=== PATIENT | female | born 2000 | race Two or more races ===

== ENCOUNTER 2022-10-26 18:39 | Inpatient (IN) | payer OTHER, SELFPAY ==
[2022-10-26] VITALS (13 sets, daily range): BP systolic 94–117; BP diastolic 54–69; PULSE 91–114; RESP 16; TEMP 36.3–36.8
[2022-10-26 20:05] LABS: Hematocrit 32.3 % (36.0-48.0); Hemoglobin 9.5 g/dL (12.0-16.0); Mean Corpuscular HGB Conc 29.4 g/dL (29.9-35.2); Mean Corpuscular Hemoglobin 20.4 pg (26.7-34.0); Mean Corpuscular Volume 69.3 fL (81.0-99.0); Mean Platelet Volume 11.3 fL (9.5-13.5); Platelet Count 246 10^3/uL (150-450); Red Blood Count 4.66 10^6/uL (4.20-5.40); Red Cell Distribution Width 18.3 % (11.0-15.0)
[2022-10-26 20:22] LABS: Amphetamine Screen Urine NEGATIVE (NEGATIVE); Barbiturates Screen Urine NEGATIVE (NEGATIVE); Benzodiazepines Screen Urine NEGATIVE (NEGATIVE); Buprenorphine Screen Urine NEGATIVE (NEGATIVE); Cannabinoid Screen Urine NEGATIVE (NEGATIVE); Cocaine Screen Urine NEGATIVE (NEGATIVE); Methadone Screen Urine NEGATIVE (NEGATIVE); Methamphetamines Screen Urine NEGATIVE (NEGATIVE); Opiate Screen Urine NEGATIVE (NEGATIVE); Oxycodone Screen Urine NEGATIVE (NEGATIVE); Phencyclidine Screen Urine NEGATIVE (NEGATIVE); Tricyclic Antidepressant Urine NEGATIVE (NEGATIVE)
[2022-10-26] MEDS: DINOPROSTONE 10 MG VAG INSERT.ER VAGINAL (20:30)
[2022-10-27] VITALS (36 sets, daily range): BP systolic 87–134; BP diastolic 49–81; PULSE 75–105; RESP 16–18; TEMP 36.2–36.9
[2022-10-27] MEDS: ACETAMINOPHEN 500 MG TABLET 1000 MG PO (05:49)
--- NOTE | 2022-10-27 07:10 | W.PC.ACHO ---
Registration Status: ADM IN Primary Language: Djiboutian Preferred Language: Djiboutian Report given at 0700. Active Medications Generic Name Dose Route Start Last Admin Trade Name Freq PRN Reason Stop Dose Admin Acetaminophen 1,000 mg 10/26/22 20:19 10/27/22 05:49 Acetaminophen 500 Mg Tablet PO 1,000 mg Q6H PRN Administration Cramping Calcium Carbonate 500 mg 10/26/22 20:19 Calcium Carbonate 500 Mg (200mg Elemental) Tab Chew PO TID PRN Acid Reflux Carboprost Tromethamine 250 mcg 10/26/22 19:02 Carboprost Tromethamine 250 Mcg/Ml 1 Ml Vial IM Q15M PRN Bleeding Famotidine 20 mg 10/26/22 20:19 Famotidine 20 Mg Tablet PO BID PRN Acid Reflux Sodium Chloride 1,000 mls @ 125 mls/hr 10/26/22 19:15 Sodium Chloride 0.9% 1,000 Ml IV .Q8H HARRISON Oxytocin/Sodium Chloride 10 units in 500 mls @ 6 mls/hr 10/27/22 07:00 Pitocin 10 Unit/500 Ml-Ns IV Q24H HARRISON Protocol 2 MILLIUNIT/MIN Lidocaine 5 ml 10/26/22 19:02 Lidocaine Viscous 2% 15 Ml Topical Solution TOPICAL Q1H PRN Pain Lidocaine 1 ml 10/26/22 19:02 Lidocaine Hcl 1% 200 Mg/20 Ml Mdv INJ Q1H PRN Pain Methylergonovine Maleate 0.2 mg 10/26/22 19:02 Methylergonovine Maleate 0.2 Mg Tablet PO Q4H PRN Uterine Contractility/Contract Methylergonovine Maleate 0.2 mg 10/26/22 19:02 Methylergonovine Maleate 0.2 Mg/Ml Ampule IM ONCE PRN Uterine Contractility/Contract Misoprostol 600 mcg 10/26/22 19:02 Misoprostol 100 Mcg Tablet PO ONCE PRN Uterine Bleeding Misoprostol 800 mcg 10/26/22 19:02 Misoprostol 100 Mcg Tablet SL ONCE PRN Uterine Bleeding Misoprostol 1,000 mcg 10/26/22 19:02 Misoprostol 100 Mcg Tablet SC ONCE PRN Uterine Bleeding Ondansetron HCl 4 mg 10/26/22 19:02 Ondansetron Pf 4 Mg/2 Ml Vial IV Q6H PRN Nausea And Vomiting Ondansetron HCl 4 mg 10/26/22 19:02 Ondansetron 4 Mg Rapdis Tablet SL Q6H PRN Nausea And Vomiting Oxytocin 10 unit 10/26/22 19:02 Oxytocin 10 Unit/Ml Vial IM ONCE PRN Bleeding Zolpidem Tartrate 5 mg 10/26/22 20:19 Zolpidem Tartrate 5 Mg Tablet PO HS PRN Sleep Diet Category Date Time Status Regular Consistency Diet Diet 10/27/22 Breakfast Active Consults Category Date Time Status Consult to Anesthesiology Routine Cons 10/27/22 Ordered IV Insertion/Site Date of IV Line Insertion [ 10/26/22 Midline 20g left Forearm] IV Insertion Time [Midline 20g 19:50 left Forearm] Neurology Patient orientation (short person,place,time,situation list) Respiratory Oxygen Delivery Method Room Air
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
[2022-10-27] MEDS: 0.9 % SODIUM CHLORIDE 1,000 ML 125 ML IV (08:28)
--- NOTE | 2022-10-27 08:30 | PM.EN ---
Event Note Event Note: To room to assess patient, states contractions are becoming more uncomfortable. SVE done and AROM performed with sterile amnio hook. Return of small amount of clear, odorless fluid, with particulate meconium noted. heart tones stable before, during and after rupture. SVE 2-3/80-2 Meconium was small amount. discussed epidural with patient and she would like to wait at this time.
[2022-10-27] MEDS: 0.9 % SODIUM CHLORIDE 1,000 ML 1000 ML IV (10:32)
--- NOTE | 2022-10-27 12:04 | PM.OBPRCVD ---
Procedure Procedure: with compound presentation and CAN x1 reduced at delivery Intrapartal events: None Induction method: per misoprostol protocol Delivery augmentation: rupture of membranes Delivery monitor: external FHT and external uterine Route of delivery: Laceration description: perineal - 1st degree Delivery repair: Vicryl Estimated blood loss (mL): 250 Anesthesia type: Local Disposition: floor Infant Gender: female presentation: vertex Placental delivery description: Spontaneous cord description: 3 Vessels heart rate - 1 minute: 100 bpm or Greater respiratory effort - 1 minute: Spontaneous/Strong Cry muscle tone - 1 minute: Minimal Flexion/Extension reflex response - 1 minute: Prompt Response color - 1 minute: Bluish Hands or Feet total score - 1 minute: 8 heart rate - 5 minute: 100 bpm or Greater respiratory effort - 5 minute: Spontaneous/Strong Cry muscle tone - 5 minute: Active Movement reflex response - 5 minute: Prompt Response color - 5 minute: Bluish Hands or Feet total score - 5 minute: 9
[2022-10-27] MEDS: OXYTOCIN/0.9 % SODIUM CHLORIDE 20 UNITS/1,000 ML PLAST..BAG 125 UNIT IV (12:23)
[2022-10-27] MEDS: KETOROLAC TROMETHAMINE 30 MG/ML VIAL IVP (12:40)
[2022-10-27] MEDS: FERROUS SULFATE 325 MG TABLET PO (21:16)
[2022-10-27] MEDS: IBUPROFEN 400 MG TABLET 800 MG PO (21:17)
[2022-10-28 05:55] LABS: Basophils Absolute Auto 0.1 10^3/uL (0.0-0.1); Basophils Percent Auto 0.6 % (0.2-2.0); Eosinophils Absolute Auto 0.4 10^3/uL (0.0-0.7); Eosinophils Percent Auto 3.2 % (0.9-7.0); Hemoglobin 8.6 g/dL (12.0-16.0); Immature Granulocytes Abs Auto 0.12 10^3/uL (0.00-0.03); Immature Granulocytes Pct Auto 0.9 % (0.0-0.5); Lymphocytes Absolute Auto 2.8 10^3/uL (1.2-3.8); Lymphocytes Percent Auto 20.8 % (20.5-60.0); Mean Corpuscular HGB Conc 28.7 g/dL (29.9-35.2); Mean Corpuscular Hemoglobin 20.6 pg (26.7-34.0); Mean Corpuscular Volume 71.9 fL (81.0-99.0); Mean Platelet Volume 11.3 fL (9.5-13.5); Monocytes Absolute Auto 1.4 10^3/uL (0.3-0.8); Monocytes Percent Auto 10.4 % (1.7-12.0); Neutrophils Absolute Auto 8.7 10^3/uL (1.4-6.5); Neutrophils Percent Auto 64.1 % (43.0-75.0); Platelet Count 213 10^3/uL (150-450); Red Blood Count 4.17 10^6/uL (4.20-5.40); Red Cell Distribution Width 18.2 % (11.0-15.0); White Blood Count 13.6 10^3/uL (4.0-11.0)
[2022-10-28] MEDS: IBUPROFEN 400 MG TABLET 800 MG PO ×2 (05:57→14:09)
[2022-10-28 05:58] VITALS: RESP 16
--- NOTE | 2022-10-28 07:26 | W.PC.ACHO ---
Registration Status: ADM IN Primary Language: Jamaican Preferred Language: Jamaican Active Medications Generic Name Dose Route Start Last Admin Trade Name Freq PRN Reason Stop Dose Admin Acetaminophen 650 mg 10/27/22 12:11 Acetaminophen 325 Mg Tablet PO Q6H PRN Mild Pain Al Hydroxide/Mg Hydroxide 2,400 mg 10/27/22 12:11 Magnesium Hydroxide 2,400 Mg/10 Ml Oral.Susp PO Q6H PRN Dyspepsia Benzocaine/Menthol 1 applic 10/27/22 12:11 Benzocaine/Menthol 85 Gram Bottle TOPICAL Q2H PRN Pain Calcium Carbonate 500 mg 10/26/22 20:19 Calcium Carbonate 500 Mg (200mg Elemental) Tab Chew PO TID PRN Acid Reflux Carboprost Tromethamine 250 mcg 10/26/22 19:02 Carboprost Tromethamine 250 Mcg/Ml 1 Ml Vial IM 10/28/22 12:00 Q15M PRN Bleeding Docusate Sodium 100 mg 10/28/22 09:00 Docusate Sodium 100 Mg Capsule PO BID HARRISON Famotidine 20 mg 10/26/22 20:19 Famotidine 20 Mg Tablet PO BID PRN Acid Reflux Ferrous Sulfate 325 mg 10/27/22 21:00 10/27/22 21:16 Ferrous Sulfate 325 Mg Tablet PO 325 mg BID HARRISON Administration Sodium Chloride 1,000 mls @ 125 mls/hr 10/26/22 19:15 10/27/22 11:30 Sodium Chloride 0.9% 1,000 Ml IV 999 mls/hr .Q8H HARRISON Infusion Ibuprofen 800 mg 10/27/22 22:00 10/28/22 05:57 Ibuprofen 400 Mg Tablet PO 800 mg Q8H HARRISON Administration Methylergonovine Maleate 0.2 mg 10/26/22 19:02 Methylergonovine Maleate 0.2 Mg Tablet PO 10/28/22 12:00 Q4H PRN Uterine Contractility/Contract Methylergonovine Maleate 0.2 mg 10/26/22 19:02 Methylergonovine Maleate 0.2 Mg/Ml Ampule IM 10/28/22 12:00 ONCE PRN Uterine Contractility/Contract Misoprostol 600 mcg 10/26/22 19:02 Misoprostol 100 Mcg Tablet PO 10/28/22 12:00 ONCE PRN Uterine Bleeding Misoprostol 800 mcg 10/26/22 19:02 Misoprostol 100 Mcg Tablet SL 10/28/22 12:00 ONCE PRN Uterine Bleeding Misoprostol 1,000 mcg 10/26/22 19:02 Misoprostol 100 Mcg Tablet PA 10/28/22 12:00 ONCE PRN Uterine Bleeding Ondansetron HCl 4 mg 10/26/22 19:02 Ondansetron Pf 4 Mg/2 Ml Vial IV Q6H PRN Nausea And Vomiting Ondansetron HCl 4 mg 10/26/22 19:02 Ondansetron 4 Mg Rapdis Tablet SL Q6H PRN Nausea And Vomiting Simethicone 80 mg 10/27/22 12:11 Simethicone 80 Mg Tab.Chew PO QID PRN Abdominal Distention Temazepam 15 mg 10/27/22 12:11 Temazepam 15 Mg Capsule PO QHS PRN Sleep Witch Kendra/Glycerin 1 pad 10/27/22 12:11 Glycerin/Witch Kendra Pads TOPICAL Q2H PRN Pain Zolpidem Tartrate 5 mg 10/26/22 20:19 Zolpidem Tartrate 5 Mg Tablet PO HS PRN Sleep Diet Category Date Time Status Regular Consistency Diet Diet 10/27/22 Lunch Active Respiratory Oxygen Delivery Method Room Air
[2022-10-28 07:50] VITALS: BP 112/64; PULSE 80
[2022-10-28 08:25] VITALS: RESP 16; TEMP 36.9
[2022-10-28] MEDS: DOCUSATE SODIUM 100 MG CAPSULE PO (09:43)
[2022-10-28] MEDS: FERROUS SULFATE 325 MG TABLET PO (09:43)
--- NOTE | 2022-10-28 13:16 | P.OBPN_ITS ---
OB - PN: Subj Subjective Patient comments: no complaints [place] status: doing well Exam Constitutional Vital Signs, click to edit/add: Last Vital Signs Temp 98.4 F 10/28/22 08:25 Pulse 80 10/28/22 07:50 Resp 16 10/28/22 08:25 BP 112/64 10/28/22 07:50 O2 Del Method Room Air 10/27/22 23:35 Documenting provider has reviewed patient's vital signs: yes Common normals: no apparent distress Respiratory Common normals: clear to auscultation bilaterally Cardio Common normals: regular rate and regular rhythm GI Common normals: Normal to inspection, nondistended, normoactive bowel sounds present Extremity Common normals: no clubbing, cyanosis or edema and no calf tenderness Results Labs Labs: Short CBC 10/28/22 Range/Units 05:43 WBC 13.6 H (4.0-11.0) 10^3/uL Hgb 8.6 L (12.0-16.0) g/dL Hct 30.0 L (36.0-48.0) % Plt Count 213 (150-450) 10^3/uL OB - PN: A/P Assessment and Plan (1) Term : Plan - Vaginal Delivery day: 1 Plan: routine care, discharge home and follow up 6 weeks Time Spent with Patient Time: Total time spent is greater than 50% in coordination of care (as documented) at patient's floor/unit and/or counseling patient: Total time spent with greater than 50% in coordination of care (as documented) at patient's floor/unit and/or counseling patient: less than 15 minutes
== END 2022-10-28 14:46 | disposition home or self-care (01) | DRG 560 ==
PROVIDERS: Admitting Provider Midwife; PCP Midwife; Visit Provider Obstetrics & Gynecology
DX: O32.6XX0 Maternal care for compound presentation, not applicable or unspecified (principal); O70.0 First degree perineal laceration during delivery; O69.81X0 Labor and delivery complicated by cord around neck, without compression, not applicable or unspecified; Z3A.39 39 weeks gestation of pregnancy; Z37.0 Single live birth; O77.0 Labor and delivery complicated by meconium in amniotic fluid; Z79.899 Other long term (current) drug therapy
CPT/HCPCS: 36415; 59050; 59410; 80307; 85025; 85027; 86850; 86900; 86901; 96365; 96366; 96375; 96376

== ENCOUNTER 2024-06-12 09:51 | Emergency (ER) | payer BC, SELFPAY ==
[2024-06-12 09:56] VITALS: BP 113/66; PULSE 89; TEMP 36.4; O2SAT 100; BMI 23.8
--- NOTE | 2024-06-12 10:27 | ED.GENADUL1 ---
HPI HPI - General Adult General Chief complaint: Neck Pain/Injury Stated complaint: FACIAL SWELLING Time Seen by Provider: 06/12/24 10:04 Source: patient Mode of arrival: walk-in Limitations: no limitations History of Present Illness HPI narrative: Patient is a 23-year-old female who is presenting to the ER today with chief complaint of 12 to 24 hours of right facial swelling. Patient has had flulike symptoms in the past 2 weeks. Patient started having right facial swelling below the mandible of the right side of her face last evening and today. Patient did see a dentist last week, had a cleaning with no difficulties. Patient has mild sore throat. Patient has had sinus drainage. Patient has no severe pain to the right parotid gland, right submandibular or submental gland. Patient tolerating secretions well. No trismus. No hot potato voice. Patient does not look ill. She does have mild to moderate swelling anterior to the right anterior cervical chain. No nausea, vomiting, diarrhea, no other acute complaints. Patient states she has mild right ear pain, has tightness to the right lower aspect of her face secondary to swelling. No trauma, no fall. All systems are negative except as noted/marked. All systems reviewed and otherwise negative. Nurses note and vital signs reviewed and patient is not hypoxic. General: The patient appears well and in no apparent distress. Patient is resting comfortably on cart. Patient is not toxic, lethargic, or listless Skin: Warm, dry, no pallor noted. There is no rash noted. No petechiae, purpura. Head: Normocephalic, atraumatic; no midline or paracervical tenderness to palpation. Full range of motion of cervical spine no difficulty. Patient has no pain to bilateral TMJ joint. Patient has no redness, erythema, no palpable abscess. Patient does have mild to moderate swelling below the angle of the right mandible to the right lateral aspect of her neck. She has no lymph nodes palpated to the right anterior or posterior cervical chain. Eye: Normal conjunctiva, no drainage, EOMI. PERRL Ears, Nose, Mouth, and Throat: oral mucosa is moist. Patient has no unilateral swelling, no obvious signs of peritonsillar abscess, no posterior pharyngeal petechiae or exudate. Airways patent. Patient tolerating secretions well. No trismus. Patient has clear drainage noted to the posterior pharynx. Patient has mild cobblestoning to the posterior pharynx. No bilateral anterior or posterior cervical lymphadenopathy. Nares patent. Mouth without vesicles. Cardiovascular: Regular Rate and Rhythm, no murmur, gallop, rub Respiratory: Patient is in no distress, no accessory muscle use, lungs are clear to auscultation, no wheezing, rales or rhonchi Back: non-tender, no CVA tenderness bilaterally to percussion. No CT LS midline pain GI: no tenderness to palpation, no masses appreciated. No rebound, guarding, or rigidity noted. No distention Musculoskeletal: Patient has full range of motion of all of the extremities, no motor, sensory, or focal neurological deficits Neurological: A&O x4, normal speech Psychiatric: Cooperative Related Data Previous Rx's ?Medication ?Instructions ?Recorded amoxicillin 875 mg-potassium 1 tab PO Q12H 10 days #20 tabs 06/12/24 clavulanate 125 mg tablet Allergies Allergy/AdvReac Type Severity Reaction Status Date / Time No Known Drug Allergies Allergy Verified 06/12/24 09:59 Opioid HPI Opioid Management Most Recent Opioid Data: Last Pain Scale 6 10/27/22 12:40 10/27/22 Ur Phencyclidine Scrn Negative (NEGATIVE) 10/26/22 19:45 10/26/22 PFSH PFSH Social History (Updated 10/26/22 @ 19:44 by Jayshree Truong) Within the past year, how often did you have a drink containing alcohol: never Score interpretation: A score less than 3 is consistent with normal alcohol consumption. Smoking status: Never smoker Non-prescribed substance use: denies use Previous occupational history: [employer] Known occupational exposures/hazards: No Highest level of school completed/degree received: high school graduate Are you now , , , , never or living with a partner: living with partner Little interest or pleasure in doing things: not at all Feeling down, depressed, or hopeless: not at all Feel stressed/tense/nervous/anxious/difficulty sleeping: not at all Do you think of yourself as: straight/heterosexual Gender Identity: female Exam Constitutional Vital Signs, click to edit/add: Last Vital Signs Temp 97.6 F 06/12/24 09:56 Pulse 89 06/12/24 09:56 Resp 18 06/12/24 09:56 BP 113/66 06/12/24 09:56 Pulse Ox 100 06/12/24 09:56 O2 Del Method Room Air 06/12/24 09:56 Course Vital Signs Vital signs: Vital Signs Temperature 97.6 F 06/12/24 09:56 Pulse Rate 89 06/12/24 09:56 Respiratory Rate 18 06/12/24 09:56 Blood Pressure 113/66 06/12/24 09:56 Pulse Oximetry 100 06/12/24 09:56 Oxygen Delivery Method Room Air 06/12/24 09:56 Temperature 97.6 F 06/12/24 09:56 Pulse Rate 89 06/12/24 09:56 Respiratory Rate 18 06/12/24 09:56 Blood Pressure 113/66 06/12/24 09:56 Pulse Oximetry 100 06/12/24 09:56 Oxygen Delivery Method Room Air 06/12/24 09:56 Medical Decision Making MDM Narrative Medical decision making narrative: Patient seen and examined: Patient will have ice applied to the right side of her face, patient will have IV, lab work, CT scan performed. Differential diagnosis includes but is not limited to: Possible parotitis, mono, mumps, dental infection, dental decay, atypical facial pain, otalgia media Diagnostics and management: Patient will have laboratory studies Relevant laboratory interpretation: No acute findings, mono negative; Radiological studies: Please see the formal radiological report. No acute lymphadenopathy, parotitis, abscess, or any obvious significant infection. Reevaluation: Patient pain feels better after using ice. Shared decision making: I discussed with the patient the necessary laboratory findings and radiological findings. Social barriers to healthcare: There are no food insecurities, there is no issue with transportation, there are no insurance barriers. Disposition: I discussed with the patient the lab work and patient's CT report. Patient was given a copy of her CT report. Patient will be placed on Augmentin prophylactically for possible early infectious process. Patient will follow-up with PCP. Patient will also call her dentist today or go to the dentist office to follow-up with them to have reevaluation of her teeth that could be causing some of the edema inflammation to the right side of her face. Patient understands, does feel better and having less pain after using the ice. Lab Data Labs: Lab Results 06/12/24 06/12/24 Range/Units 10:15 10:20 WBC 8.6 (4.0-11.0) 10^3/uL RBC 4.12 L (4.20-5.40) 10^6/uL Hgb 12.4 (12.0-16.0) g/dL Hct 37.4 (36.0-48.0) % MCV 90.8 (81.0-99.0) fL MCH 30.1 (26.7-34.0) pg MCHC 33.2 (29.9-35.2) g/dL RDW 12.8 (11.0-15.0) % Plt Count 236 (150-450) 10^3/uL MPV 10.7 (9.5-13.5) fL Neut % (Auto) 62.9 (43.0-75.0) % Lymph % (Auto) 20.7 (20.5-60.0) % [place] % (Auto) 12.1 H (1.7-12.0) % Eos % (Auto) 3.4 (0.9-7.0) % Baso % (Auto) 0.7 (0.2-2.0) % Neut # (Auto) 5.4 (1.4-6.5) 10^3/uL Lymph # (Auto) 1.8 (1.2-3.8) 10^3/uL [place] # (Auto) 1.0 H (0.3-0.8) 10^3/uL Eos # (Auto) 0.3 (0.0-0.7) 10^3/uL Baso # (Auto) 0.1 (0.0-0.1) 10^3/uL Abs Immat Gran (auto) 0.02 (0.00-0.03) 10^3/uL Imm/Tot Granulo (auto) 0.2 (0.0-0.5) % Sodium 138 (136-145) mmol/L Potassium 4.0 (3.5-5.1) mmol/L Chloride 104 (98-107) mmol/L Carbon Dioxide 26.0 (21.0-32.0) mmol/L Anion Gap 12.0 BUN 14.0 (7.0-18.0) mg/dL Creatinine 0.71 (0.55-1.02) mg/dL Est GFR ( Amer) >60 (>=60 mL/min/1.73m^2) Est GFR (Non-Af Amer) >60 (>=60 mL/min/1.73m^2) BUN/Creatinine Ratio 19.7 Glucose 107 H (74-106) mg/dL Calcium 8.7 (8.5-10.1) mg/dL Monoscreen Negative (NEGATIVE) Streptococcus Screen Negative Discharge Plan Discharge Chief Complaint: Neck Pain/Injury Clinical Impression: Right facial swelling, Atypical face pain Patient Disposition: Home, Self-Care Time of Disposition Decision: 11:15 Condition: Fair Prescriptions / Home Meds: New amoxicillin-pot clavulanate 875-125 mg tablet 1 tab PO Q12H 10 Days Qty: 20 0RF Print Language: Armenian Instructions: Edema (ED), Atypical Facial Pain (ED) Additional Instructions: You are being placed on Augmentin prophylactically secondary to possible early infectious process. Most likely the area is more inflammatory than infectious, make sure that use ice 20 minutes on, 20 minutes off for the next 7 to 10 days Alternate Tylenol and either Motrin, Advil, or ibuprofen every 4 hours to help with pain. Maximum dose of Tylenol is 3000 mg a day. Maximum dose of either Motrin, Advil, or ibuprofen is 2400 mg a day. Call your dentist to make a follow-up appointment for reevaluation to make sure that one of your tooth/teeth are not infected. Referrals: [facility] [Primary Care Provider] - 1 week Discharge Date/Time: 06/12/24 11:26
[2024-06-12 10:29] LABS: Basophils Absolute Auto 0.1 10^3/uL (0.0-0.1); Basophils Percent Auto 0.7 % (0.2-2.0); Eosinophils Absolute Auto 0.3 10^3/uL (0.0-0.7); Eosinophils Percent Auto 3.4 % (0.9-7.0); Hematocrit 37.4 % (36.0-48.0); Hemoglobin 12.4 g/dL (12.0-16.0); Immature Granulocytes Abs Auto 0.02 10^3/uL (0.00-0.03); Immature Granulocytes Pct Auto 0.2 % (0.0-0.5); Lymphocytes Absolute Auto 1.8 10^3/uL (1.2-3.8); Lymphocytes Percent Auto 20.7 % (20.5-60.0); Mean Corpuscular HGB Conc 33.2 g/dL (29.9-35.2); Mean Corpuscular Hemoglobin 30.1 pg (26.7-34.0); Mean Corpuscular Volume 90.8 fL (81.0-99.0); Mean Platelet Volume 10.7 fL (9.5-13.5); Monocytes Percent Auto 12.1 % (1.7-12.0); Neutrophils Absolute Auto 5.4 10^3/uL (1.4-6.5); Neutrophils Percent Auto 62.9 % (43.0-75.0); Platelet Count 236 10^3/uL (150-450); Red Blood Count 4.12 10^6/uL (4.20-5.40); Red Cell Distribution Width 12.8 % (11.0-15.0); White Blood Count 8.6 10^3/uL (4.0-11.0)
[2024-06-12 10:38] LABS: Internal Control Within Normal Limits; Strep A Antigen Screen Negative
[2024-06-12 10:45] LABS: BUN Creatinine Ratio 19.7; Calcium 8.7 mg/dL (8.5-10.1); Chloride 104 mmol/L (98-107); Estimated GFR (African America >60 (>=60 mL/min/1.73m^2); Estimated GFR (Non-African Ame >60 (>=60 mL/min/1.73m^2); Glucose 107 mg/dL (74-106); Sodium 138 mmol/L (136-145)
[2024-06-12 10:50] LABS: Internal Control Within Normal Limits; Mono Screen NEGATIVE (NEGATIVE)
== END 2024-06-12 11:26 | disposition home or self-care (01) ==
PROVIDERS: Emergency Provider Emergency Medicine
DX: R22.0 Localized swelling, mass and lump, head (principal); G50.1 Atypical facial pain
CPT/HCPCS: 36415; 70491; 80048; 85025; 86308; 87070; 87880; 99284; Q9967